=== PATIENT | male | born 1990 | race Caucasian/White ===

== ENCOUNTER 2018-01-04 07:15 | Emergency (ER) | payer OTHER ==
[2018-01-04 07:46] VITALS: RESP 20
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
[2018-01-04 09:12] VITALS: BP 137/78; PULSE 63; TEMP 97.2
== END 2018-01-04 09:12 | disposition home or self-care (01) ==
LOC: EC 07:15
DX: S90.32XA Contusion of left foot, initial encounter (principal); Z88.0 Allergy status to penicillin; V03.90XA Pedestrian on foot injured in collision with car, pick-up truck or van, unspecified whether traffic or nontraffic accident, initial encounter; Y93.89 Activity, other specified; Y92.69 Other specified industrial and construction area as the place of occurrence of the external cause; Y99.0 Civilian activity done for income or pay
CPT/HCPCS: 99283